=== PATIENT | male | born 1995 ===

== ENCOUNTER 2021-05-19 10:33 | Emergency (ER) | payer SELFPAY ==
--- NOTE | 2021-05-19 12:32 | Emergency Department Report ---
ED Palpitations HPI - General Stated Complaint: CHEST PAIN Time Seen by Provider: 05/19/21 12:13 Source: patient Limitations: No Limitations - History of Present Illness Initial Comments: This is a 25-year-old -[place] female that presents to the emergency room with palpitations for several hours today. Past medical history of generalized anxiety. Patient states she was discharged from [facility] yesterday and started on Lexapro 20 mg p.o. Patient states she used to see Dr. Torres who is a psychiatrist prior to his long term and been off medication for several months. She remembered Dr. Torres usually restarts medication 5 to 10 mg weekly medication is causing worse anxiety. Denies chest pain, SOB, dyspnea, weakness. MD Complaint: rapid heart beat Context: awoke with symptoms Associated Symptoms: denies other symptoms - Related Data Allergies Allergy/AdvReac Type Severity Reaction Status Date / Time No Known Allergies Allergy Unverified 05/19/21 13:36 ED Review of Systems ROS: Stated complaint: CHEST PAIN Other details as noted in HPI Constitutional: denies: chills, fever Respiratory: denies: cough, shortness of breath, wheezing Cardiovascular: palpitations. denies: chest pain, dyspnea on exertion, syncope Gastrointestinal: denies: abdominal pain, nausea, diarrhea Skin: denies: rash, lesions Neurological: denies: headache, weakness, paresthesias Psychiatric: anxiety. denies: depression ED Physical Exam - General General appearance: alert, in no apparent distress - Respiratory Respiratory exam: Present: normal lung sounds bilaterally. Absent: respiratory distress - Cardiovascular Cardiovascular Exam: Present: regular rate, normal rhythm. Absent: systolic murmur, diastolic murmur, rubs, gallop - GI/Abdominal GI/Abdominal exam: Present: soft, normal bowel sounds - Neurological Exam Neurological exam: Present: alert, oriented X3, normal gait - Psychiatric Psychiatric exam: Present: normal affect, normal mood - Skin Skin exam: Present: warm, dry, intact, normal color. Absent: rash ED Course Vital Signs 05/19/21 13:40 Temperature 98 F Pulse Rate 94 H Respiratory 16 Rate Blood Pressure 120/69 [Left] O2 Sat by Pulse 95 Oximetry ED Medical Decision Making - Lab Data Result diagrams: 05/19/21 12:43 05/19/21 12:43 Lab Results 05/19/21 05/19/21 05/19/21 Range/Units 12:43 12:43 12:43 WBC 6.7 (4.5-11.0) K/mm3 RBC 4.16 (3.65-5.03) M/mm3 Hgb 11.9 (11.8-15.2) gm/dl Hct 36.3 (35.5-45.6) % MCV 87 (84-94) fl MCH 29 (28-32) pg MCHC 33 (32-34) % RDW 13.5 (13.2-15.2) % Plt Count 338 (140-440) K/mm3 Sodium 139 (137-145) mmol/L Potassium 4.1 (3.6-5.0) mmol/L Chloride 105.5 (98-107) mmol/L Carbon Dioxide 26 (22-30) mmol/L Anion Gap 12 mmol/L BUN 10 (9-20) mg/dL Creatinine 0.8 (0.8-1.3) mg/dL Estimated GFR > 60 ml/min BUN/Creatinine Ratio 13 % Glucose 88 (75-100) mg/dL Calcium 9.5 (8.4-10.2) mg/dL TSH 0.618 (0.270-4.200) mlU/mL HCG, Qual (Negative) 05/19/21 Range/Units 12:43 WBC (4.5-11.0) K/mm3 RBC (3.65-5.03) M/mm3 Hgb (11.8-15.2) gm/dl Hct (35.5-45.6) % MCV (84-94) fl MCH (28-32) pg MCHC (32-34) % RDW (13.2-15.2) % Plt Count (140-440) K/mm3 Sodium (137-145) mmol/L Potassium (3.6-5.0) mmol/L Chloride (98-107) mmol/L Carbon Dioxide (22-30) mmol/L Anion Gap mmol/L BUN (9-20) mg/dL Creatinine (0.8-1.3) mg/dL Estimated GFR ml/min BUN/Creatinine Ratio % Glucose (75-100) mg/dL Calcium (8.4-10.2) mg/dL TSH (0.270-4.200) mlU/mL HCG, Qual Negative (Negative) - EKG Data -: No EKG Interpreted by Me (EKG interpreted by attending) EKG shows normal: sinus rhythm Rate: normal - Medical Decision Making This is a 25-year-old female presents with palpitations. Past medical history of generalized anxiety disorder. The patient presents with symptoms that are consistent with acute anxiety or panic attack. There is low suspicion of acute cardiopulmonary process such as PE, ACS, or dissection. She denies alcohol intake, abdominal pain, or any other medical complaints. Labs were obtained and all unremarkable. EKG normal sinus rhythm. Symptoms are consistent with panic attack. Instructed to split lexapro tablets in half and follow up at [facility]. Patient discharged home stable. Critical care attestation.: If time is entered above; I have spent that time in minutes in the direct care of this critically ill patient, excluding procedure time. ED Disposition Clinical Impression: Left against medical advice, Anxiety Disposition: 07 LEFT AWOL/ELOPED Is pt being admited?: No Condition: Undetermined Referrals: PRIMARY CARE, [Primary Care Provider] - 3-5 Days
[2021-05-19 13:08] LABS: Hematocrit 36.3 % (35.5-45.6); Hemoglobin 11.9 gm/dl (11.8-15.2); Mean Corpuscular HGB Conc 33 % (32-34); Mean Corpuscular Volume 87 fl (84-94); Platelet Count 338 K/mm3 (140-440); Red Blood Count 4.16 M/mm3 (3.65-5.03); Red Cell Distribution Width 13.5 % (13.2-15.2)
[2021-05-19 13:14] LABS: BUN/Creatinine Ratio 13; Blood Urea Nitrogen 10 mg/dL (9-20); Calcium 9.5 mg/dL (8.4-10.2); Hemolysis Index 6
[2021-05-19] MEDS ORDERED: ALPRAZolam 0.5 MG TAB PO ONE (13:37)
[2021-05-19 13:42] VITALS: BP 120/69
--- NOTE | 2021-05-20 10:10 | Electrocardiograph Report ---
[facility] Test Date: 2021-05-19 Test Time: 12:33:03 Pat Name: ILIR MENDIOLA Department: Room: Gender: M [employer] Supervisor: JAIRO : 1995 Requested By: CASPER PASTOR Order Number: [id number] Reading MD: Delano Benitez Measurements Intervals [place] Rate: 96 P: 75 WI: 146 QRS: 56 QRSD: 73 T: 36 QT: 343 QTc: 433 Interpretive Statements Sinus rhythm LAE, consider biatrial enlargement No previous ECG available for comparison Electronically Signed On 05-20-2021 10:10:31 EDT by Delano Benitez
== END 2021-05-19 14:43 | disposition left against medical advice (07) ==
LOC: ED 10:33
DX: F41.9 Anxiety disorder, unspecified (principal)
CPT/HCPCS: 36415; 80048; 84443; 84703; 85027; 93005; 99283